=== PATIENT | female | born 1965 | race African-American/Black ===

== ENCOUNTER 2018-01-26 13:04 | Outpatient (CLI) | payer OTHER, SELFPAY ==
[2018-01-26 14:08] LABS: #Basophils 0.1 thou/uL (0.0-0.2); #Eosinphils 0.3 thou/uL (0.0-0.7); #Lymphocytes 2.5 thou/uL (1.20-3.40); #Monocytes 0.3 thou/uL (0.11-0.59); #Neutrophils 3.5 thou/uL (1.40-6.50); %Lymphocytes 36.7 % (21.0-51.0); %Neutrophils 52.3 % (42.0-75.0); Hemoglobin 12.5 g/dL (12.0-16.0); Mean Corpuscular HGB CONC 32.2 g/dL (32.0-36.0); Mean Corpuscular Hemoglobin 29.4 pg (27.0-31.0); Mean Corpuscular Volume 91.3 fl (81.0-99.0); Platelet Count 282 thou/uL (130-400); RBC Distribution Width 11.8 % (11.5-14.5); Red Blood Cell (RBC) Count 4.27 mill/uL (4.20-5.40); White Blood Cell (WBC) Count 6.7 thou/uL (4.8-10.8)
[2018-01-26 14:41] LABS: Anion Gap 8 mmol/L (10-20); BUN (Urea Nitrogen) 9 mg/dL (9.8-20.1); Calc. Creatinine Clearance 0 mL/min (70-130); Calcium 10.3 mg/dL (7.8-10.44); Carbon Dioxide 32 mmol/L (22-29); Chloride 105 mmol/L (98-107); Estimated GFR-MDRD 82; Glucose 86 mg/dL (70-105); Sodium 141 mmol/L (136-145)
--- NOTE | 2018-02-03 19:49 | EKG ---
Test Reason : Blood Pressure : / mmHG Vent. Rate : 067 BPM Atrial Rate : 067 BPM P-R Int : 160 ms QRS Dur : 090 ms QT Int : 396 ms P-R-T Axes : 063 044 049 degrees QTc Int : 418 ms Normal sinus rhythm Possible Left atrial enlargement Borderline ECG When compared with ECG of 28-JUL-2017 13:49, T wave amplitude has decreased in Anterior leads Confirmed by PHYLLIS WHITE (2) on 02/03/2018 7:49:23 PM Referred By: SIMÓN Confirmed By:PHYLLIS WHITE
== END 2018-01-26 13:05 | disposition home or self-care (01) ==
LOC: LABBT 13:04
PROVIDERS: ATTEND Orthopaedic Surgery Hand Surgery
DX: Z01.818 Encounter for other preprocedural examination (principal); Z01.812 Encounter for preprocedural laboratory examination; T84.84XA Pain due to internal orthopedic prosthetic devices, implants and grafts, initial encounter
CPT/HCPCS: 80048; 85025; 93005; 93010

== ENCOUNTER 2018-01-27 06:01 | Day surgery (SDC) | payer OTHER ==
[2018-01-26 13:27] VITALS: BMI 27.6
[2018-01-27] MEDS ORDERED: CEFAZOLIN/Water 2 GM/20 ML SYRINGE ONE (06:41)
[2018-01-27] MEDS ORDERED: Sodium Chloride 0.9% 0 ML ONE (06:44)
[2018-01-27] MEDS ORDERED: Bupivacaine 0.5% 10 ML VIAL ONE (06:44)
[2018-01-27] MEDS ORDERED: Lidocaine 1% (PF) 30 ML VIAL ONE (06:44)
[2018-01-27] MEDS ORDERED: Thrombin 5000 UNITS/5 ML VIAL ONE (06:45)
[2018-01-27] MEDS ORDERED: Bacitracin Zinc Ointment 30 gm TUBE ONE (06:45)
[2018-01-27] MEDS ORDERED: Midazolam HCl 2 mg/2 ml Vial ONE (07:04)
[2018-01-27] MEDS ORDERED: Fentanyl 250 MCG/5 ML VIAL ONE (07:06)
[2018-01-27] MEDS ORDERED: Dexamethasone 4 mg/ml Vial ONE (08:52)
[2018-01-27] MEDS ORDERED: Dexamethasone 20 MG/5 ML VIAL ONE ×2 (08:52→17:33)
[2018-01-27] MEDS ORDERED: Ketorolac Tromethamine 30 MG/ML VIAL ONE ×2 (09:59→17:33)
--- NOTE | 2018-01-27 11:05 | RAD ---
LEFT FINGER TWO VIEWS: History: Left ring finger hardware removal. Comparison: 07-28-17 FINDINGS: Interval removal of the hardware of the ring finger middle phalanx. IMPRESSION: Interval removal of three screws. POS: ANASTASIYA
[2018-01-27] MEDS ORDERED: Ondansetron HCl/PF 4 MG/2 ML Vial ONE (17:33)
[2018-01-27] MEDS ORDERED: PROPOFOL 200 MG/20 ML VIAL ONE (17:33)
[2018-01-27] MEDS ORDERED: Lidocaine 1% PF 5 ML VIAL ONE (17:33)
--- NOTE | 2018-01-28 12:52 | OP ---
DATE OF PROCEDURE: 01/27/2018 PREOPERATIVE DIAGNOSES: Adhesions, with joint contracture and extensive adhesions to the previous co mplex fracture due to open reduction and internal fixation of middle phalanx of the left ring finger. POSTOPERATIVE DIAGNOSES: Adhesions, with joint contracture and extensive adhesions and previous comp stephen fracture due to open reduction and internal fixation of middle phalanx of the left ring finger. PROCEDURES PERFORMED: 1. Removal of the deep implants x2. 2. Tendon adhesions of the extensor tendon release. 3. Arthrotomy distal phalangeal joint. SPECIMEN REMOVED: Three screws. TOURNIQUET TIME: 30 minutes. ESTIMATED BLOOD LOSS: 10 mL. FINDINGS: Left distal phalangeal joint and extensive adhesions from the screws. DESCRIPTION OF PROCEDURE: After successful general endotracheal anesthesia, limb was prepped and penny ped. Time out was done appropriately and it matched the site, side, and purpose. We then injected s michelle with 10 mL of 0.5% Marcaine metacarpophalangeal block level and exsanguinated the limb. Inflat ed tourniquet to 250 mmHg pressure. There was no complications. Then, we opened the previous incisi on extended 5 mm distal and proximal. We then carried through skin, subcutaneous tissue, creating th e flap of deep dermis from the tendon. Then, we visualized the screws and tendon from the bone, combination of [place] blade, and a tenotomy scissor as well as a Shields elevator. Thi s led to visualization of screws, which were quite palmar, and increased glide of the tendon mechanis m, which appeared to be free. We then placed Celestone 3 mL on the distant, removed the screws last, and before we did remove the screws, we allowed passive motion to achieve almost 90 degrees and then at the joint. All wounds were closed for the implant removal with interrupted 4-0 nylon. Patient l eft without evidence of anesthetic or operative complication from table.
== END 2018-01-27 11:30 | disposition home or self-care (01) ==
LOC: SDC 06:01
PROVIDERS: ATTEND Orthopaedic Surgery Hand Surgery
DX: M24.642 Ankylosis, left hand (principal); M24.542 Contracture, left hand; M96.69 Fracture of other bone following insertion of orthopedic implant, joint prosthesis, or bone plate; T85.848A Pain due to other internal prosthetic devices, implants and grafts, initial encounter; Z79.899 Other long term (current) drug therapy; Z88.5 Allergy status to narcotic agent; Z98.890 Other specified postprocedural states
CPT/HCPCS: 76001; 96372; A4216; J1100; J1885; J2001; J2250; J2405; J2704; J3010; J3490

== ENCOUNTER 2018-10-12 12:28 | Outpatient (CLI) | payer OTHER ==
[2018-10-12 13:45] LABS: #Eosinphils 0.1 thou/uL (0.0-0.7); #Lymphocytes 1.8 thou/uL (1.20-3.40); #Monocytes 0.4 thou/uL (0.11-0.59); #Neutrophils 3.6 thou/uL (1.40-6.50); %Basophils 0.8 % (0.0-1.0); %Eosinophils 1.2 % (0.0-10.0); %Lymphocytes 30.7 % (21.0-51.0); %Monocytes 6.1 % (0.0-10.0); %Neutrophils 61.2 % (42.0-75.0); Hemoglobin 12.7 g/dL (12.0-16.0); Mean Corpuscular HGB CONC 32.8 g/dL (32.0-36.0); Mean Corpuscular Hemoglobin 29.2 pg (27.0-31.0); Mean Corpuscular Volume 89.1 fL (78.0-98.0); Platelet Count 320 thou/uL (130-400); RBC Distribution Width 11.4 % (11.5-14.5); Red Blood Cell (RBC) Count 4.34 mill/uL (4.20-5.40)
[2018-10-12 13:52] LABS: Bilirubin Negative (Negative); Blood, Urine Negative (Negative); Clarity CLEAR (Clear); Glucose, Urine (Dipstick) Negative (Negative); Leukocyte Negative (Negative); Nitrite Negative (Negative); Protein, Urine (Dipstick) Negative (Neg-Trace); Specific Gravity, Urine 1.015 (1.002-1.036); Urobilinogen 0.2 mg/dL (0.2-1.0); pH, Urine 5.5 (5.0-9.0)
[2018-10-12 13:54] LABS: Bacteria/HPF None Seen HPF (None Seen); Hyaline Casts/LPF 0-3 HYALINE CAST LPF (0-3 Hyaline); Pathc Cast-AUWi Flag 0.14 (0-2.49); RBC/HPF 0-3 HPF (0-3); Squamous Epithelial None Seen HPF (0-3); WBC/HPF None Seen HPF (0-3)
[2018-10-12 13:55] LABS: Anion Gap 8 mmol/L (10-20); BUN (Urea Nitrogen) 15 mg/dL (9.8-20.1); Calc. Creatinine Clearance 0 mL/min (70-130); Calcium 9.9 mg/dL (7.8-10.44); Carbon Dioxide 29 mmol/L (22-29); Chloride 104 mmol/L (98-107); Estimated GFR-MDRD 84; Glucose 91 mg/dL (70-105); Potassium 4.3 mmol/L (3.5-5.1); Sodium 137 mmol/L (136-145)
--- NOTE | 2018-10-12 19:30 | EKG ---
Test Reason : Blood Pressure : / mmHG Vent. Rate : 069 BPM Atrial Rate : 069 BPM P-R Int : 146 ms QRS Dur : 088 ms QT Int : 406 ms P-R-T Axes : 041 050 035 degrees QTc Int : 435 ms Normal sinus rhythm Normal ECG When compared with ECG of 26-JAN-2018 12:41, No significant change was found Confirmed by DEZ MOSER, DR. Hawkins (4) on 10/12/2018 7:30:10 PM Referred By: MELISSA Confirmed By:DR. Ross GARCES MD
== END 2018-10-12 12:29 | disposition home or self-care (01) ==
LOC: LABBT 12:28
PROVIDERS: ATTEND Orthopaedic Surgery Hand Surgery
DX: Z01.812 Encounter for preprocedural laboratory examination (principal); M24.542 Contracture, left hand
CPT/HCPCS: 80048; 81001; 85025; 93005; 93010

== ENCOUNTER 2018-10-13 05:48 | Day surgery (SDC) | payer OTHER ==
[2018-10-12 12:01] VITALS: BMI 25.2
[2018-10-13] MEDS ORDERED: Fentanyl 100 MCG/2 ML VIAL ONE (06:18)
[2018-10-13] MEDS ORDERED: Bupivacaine PF 0.5% 30 ML VIAL ONE (06:36)
[2018-10-13] MEDS ORDERED: Bacitracin Zinc Ointment 30 gm TUBE ONE (06:36)
[2018-10-13] MEDS ORDERED: CEFAZOLIN 2 GM/50 ML BAG ONE (06:40)
[2018-10-13] MEDS ORDERED: Betamet Acet/Betamet Na Ph 30 MG/5 ML VIAL ONE (07:41)
[2018-10-13] MEDS ORDERED: Ketorolac Tromethamine 30 MG/ML VIAL ONE ×2 (09:21→17:12)
[2018-10-13] MEDS ORDERED: PHENYLEPHRINE-NS 100 MCG/ML 10 ML SYRINGE ONE (17:12)
[2018-10-13] MEDS ORDERED: PROPOFOL 200 MG/20 ML VIAL ONE (17:12)
[2018-10-13] MEDS ORDERED: Lidocaine 1% PF 5 ML VIAL ONE (17:12)
[2018-10-13] MEDS ORDERED: Dexamethasone 20 MG/5 ML VIAL ONE (17:12)
[2018-10-13] MEDS ORDERED: Ondansetron PF 4 MG/2 ML Vial ONE (17:12)
[2018-10-13] MEDS ORDERED: ePHEDrine/0.9% NaCl/PF SYRINGE 50 mg/10 ml ONE (17:12)
--- NOTE | 2018-10-15 08:23 | OP ---
DATE OF PROCEDURE: 10/13/2018 PREOPERATIVE DIAGNOSES: 1. Left ring finger distal interphalangeal joint contracture. 2. Left right finger extensor terminal tendon adhesions and intrinsic tightness. PROCEDURES PERFORMED: 1. Tenolysis of extensor tendon, level of the middle and distal phalanx. 2. Arthrotomy with capsulectomy, dorsal distal interphalangeal joint and collateral portion of distal interphalangeal joint. 3. Intrinsic release, distal, near complete separation of left ring finger. Preoperative passive motion was at most 5 degrees regardless of position of the proximal phalangeal joint and after the releases, we could easily achieve 45 to 50 degrees with minimal resistance. TOURNIQUET TIME: 51 minutes. ESTIMATED BLOOD LOSS: 10 mL. SPECIMEN REMOVED: Some of the scar, especially that adhered to the skin and some adhered to the bone, FINDINGS: A very tight dorsal distal interphalangeal capsule and tight distal intrinsic and extrinsic tendon adhesions. DESCRIPTION OF PROCEDURE: After successful general endotracheal anesthesia, limb was prepped and draped. We again tried to see if we could close method making progress but it was just too resistant with even the passive motion regardless of metacarpophalangeal joint, proximal phalangeal joint position. Tenodesis effect showed that there was hyperextention at both the DIP and PIP joints and thus we continued our planned procedure as listed above. First, we injected with 15 mL of 0.5% Marcaine in the metacarpophalangeal joint level and we did another 10 at the end of the procedure once the wound was closed. We used the old incision, which was brought back to the level of the central slip insertion and we extended distally 5 mm so we could be quite a bit distal to the joint. We noticed [QAMARKER] adhesions between the skin and the tendon, and therefore we debrided some scar so we could see more healthy tendon. There was no gap in the tendon; indeed, even with the skin completely , it did not allow for the motion. We then visualized both the radial and dorsal side of the capsule, lifted the tendon off the capsule remnant so we could visualize bone and did a complete capsulectomy down to the level of collaterals and then released the collaterals. We did not go volar to the collaterals. Then, we were able to slowly separate the tendon from the level of the distal interphalangeal joint to the level of the oblique retinacular ligament and at this point, we had gone radial and ulnar aspect capsulectomy with capsulotomy and we could achieve approximately 0 to 20 degrees passive flexion, but this was not new, that seen in other digits so we continued. We saw a thinned area of the tendon mechanism near the area of oblique retinacular ligament and we freed this up. The intrinsics were also adherent, so in order to allow the tendon to slide distally, distal between the level of the central slip insertion and at the level of the oblique retinacular ligament, we performed a release of the intrinsic obliquely back, beginning almost at the level of the PIP joint, then leaving a 4 mm rim of the intrinsic tendon intact on both sides, lifting this up and leaving the central slip alone. Once this was done, we noticed that we could then achieve between 45 and 50 degrees of passive flexion at the DIP joint, indeed the same as the adjacent digit with minimal resistance. Tenodesis then showed that the DIP joint rested in approximately 5 to 10 degrees of flexion, PIP joint was approximately 5 degrees more flexed than the hyperextended other digits, but it did not demonstrate any acquired deformity. Thus, we felt we had an adequate release without appreciable functional change in the extensor tunnel of the PIP joint. The patient had the space between the bone/joint and the extensor tendon irrigated with 10 mL of betamethasone slowly in order to help cut done adhesions. Then, we released the tourniquet and had excellent hemostasis. We finally closed gently with a 5-0 nylon and we were still able to achieve passive DIP joint flexion of 50 degrees, which did not change regardless of PIP joint position. We gave an additional 10 mL of 0.5% Marcaine in the metacarpophalangeal block level, placed only a soft dressing to allow some motion, prepared for discharge and discussed the whole plan of giving antiinflammatory medicines, first Toradol and then followed by Coco for a total of 30 days (5 and 25 respectively) beginning therapy within 2 days, keeping off work for approximately 1 week and then have the patient follow up in 7 to 10 days, hoping to see at least at that point 45 degrees of active flexion of the DIP joint when the PIP joint is flexed 90 degrees. Job ID: [id number]
== END 2018-10-13 10:20 | disposition home or self-care (01) ==
LOC: SDC 05:48
PROVIDERS: ATTEND Orthopaedic Surgery Hand Surgery
PROC: 0KND0ZZ Release Left Hand Muscle, Open Approach (ICD-10-PCS; principal; 2018-10-13)
PROC: 0RBW0ZZ Excision of Right Finger Phalangeal Joint, Open Approach (ICD-10-PCS; principal; 2018-10-13)
DX: M24.542 Contracture, left hand (principal); M24.642 Ankylosis, left hand; I10 Essential (primary) hypertension; Z79.899 Other long term (current) drug therapy; Z88.5 Allergy status to narcotic agent
CPT/HCPCS: 96372; J0131; J0702; J1100; J1885; J2001; J2405; J2704; J3010; S0020